=== PATIENT | female | born 1940 | race Caucasian/White ===

== ENCOUNTER 2019-05-15 10:21 | Emergency (ER) | payer MEDICARE, OTHER ==
[2019-05-15] MEDS ORDERED: IBUPROFEN 600 MG TABLET PO STA (11:33)
--- NOTE | 2019-05-15 11:36 | ED Physician Documentation ---
PD HPI Fall - Stated complaint Stated Complaint: GLF/NOSE BLEED - Chief complaint Chief Complaint: Heent - History obtained from History obtained from: Patient - History of Present Illness Mechanism of injury: Tripped Fall distance: Standing position Where injury occurred: Home Timing - onset: How many hours ago (1) Injury(ies) location: Face Associated symptoms: No: LOC, Neck pain Similar symptoms before: Has not had sx before - Additional information Additional information: The patient is an 78-year-old female who tripped over a "pile of rugs" and fell, hitting her nose on hardwood bobbi. Her nose bled initially, but the bleeding has since resolved. She presents with pain and swelling of her nose. She denies headache or neck pain. She denies any other injuries. Review of Systems Constitutional: denies: Fever Eyes: denies: Decreased vision Ears: denies: Tinnitus/ringing Nose: denies: Congestion Cardiac: denies: Chest pain / pressure Respiratory: denies: Dyspnea, Cough GI: denies: Abdominal Pain, Nausea, Vomiting : denies: Dysuria Skin: denies: Abrasion (s), Laceration (s) Musculoskeletal: denies: Neck pain, Extremity pain Neurologic: denies: Focal weakness, Numbness, Headache PD PAST MEDICAL HISTORY - Past Medical History Cardiovascular: Hypertension Respiratory: Pneumonia Musculoskeletal: Rheumatoid arthritis - Past Surgical History Past Surgical History: Yes General: Cholecystectomy Ortho: Hip replacement HEENT: Tonsil/Adenoidectomy - Present Medications Home Medications: Ambulatory Orders Medication Instructions Recorded Confirmed Fluconazole [Diflucan] 150 mg PO ONCE #2 tablet 10/30/13 Losartan [Cozaar] 25 mg PO BID 10/30/13 10/30/13 Nitrofurantoin Monohyd/M-Cryst 100 mg PO BID #10 capsule 10/30/13 [Macrobid 100 mg Capsule] - Allergies Allergies/Adverse Reactions: Allergies Allergy/AdvReac Type Severity Reaction Status Date / Time Sulfa (Sulfonamide Allergy Unknown Verified 05/15/19 10:33 Antibiotics) sulfamethoxazole Allergy Unknown Verified 05/15/19 10:33 [From Bactrim] trimethoprim [From Bactrim] Allergy Unknown Verified 05/15/19 10:33 - Social History Does the pt smoke?: No Smoking Status: Never smoker Does the pt drink ETOH?: Yes Does the pt have substance abuse?: No - POLST Patient has POLST: No PD ED PE NORMAL - Vitals Vital signs reviewed: Yes (Systolic hypertension initially.) - General General: Alert and oriented X 3, Well developed/nourished - HEENT HEENT: PERRL, EOMI, Ears normal, Other (There is swelling and ecchymosis at the base of the nose, with associated tenderness to palpation. There is no septal hematoma. There is no mandibular tenderness to palpation.) - Neck Neck: No bony TTP, Other (Full cervical range of motion without tenderness.) - Cardiac Cardiac: RRR - Respiratory Respiratory: No respiratory distress, Clear bilaterally - Abdomen Abdomen: Soft, Non tender - Back Back: No spinal TTP - Derm Derm: No rash - Extremities Extremities: No edema, No calf tenderness / cord, Other (No tenderness to palpation of the extremities.) - Neuro Neuro: Alert and oriented X 3, No motor deficit, No sensory deficit Results - Vitals Vitals: Vital Signs - 24 hr 05/15/19 05/15/19 10:29 13:01 Temperature 36.0 C L Heart Rate 64 78 Respiratory 19 19 Rate Blood Pressure 151/59 H 137/78 H O2 Saturation 96 99 Oxygen O2 Source Room air - Rads (name of study) Nasal bones Radiology: Prelim report reviewed, EMP read contemporaneously, See rad report (There is cortical irregularity of the mid nasal bone seen on both frontal and lateral views, which may represent a nondisplaced fracture. Overlying soft tissue swelling. Bones otherwise grossly intact. The visualized paranasal sinuses are clear.) PD MEDICAL DECISION MAKING - ED course Complexity details: reviewed results, re-evaluated patient, considered differential, d/w patient, d/w family ED course: The patient's presentation is significant for a nondisplaced nasal fracture caused from a trip and fall. There is no septal hematoma on physical examination, and no nasal bone displacement seen on x-ray examination. Treatment in the emergency department included administration of ibuprofen 600 mg orally. I discussed with the patient and her the expected course of injury, s ymptomatic treatment and outpatient follow-up, as well as potentially worrisome signs or symptoms that should prompt reevaluation in the emergency department. Departure - Departure Disposition: 01 Home, Self Care Clinical Impression: Nasal bones, closed fracture Qualifiers: Encounter type: initial encounter Qualified Code(s): S02.2XXA - Fracture of nasal bones, initial encounter for closed fracture Condition: Stable Instructions: ED Fx Nasal Conf W X Ray Comments: Apply ice pack to the injured area intermittently for the next 2 days. You can use Tylenol or ibuprofen if needed for pain. Follow-up with your primary physician within 1 week, when the swelling has resolved. Call to schedule appointment. Return to the emergency department if you develop markedly increasing swelling, persistent bleeding, or otherwise worsening symptoms. Discharge Date/Time: 05/15/19 13:01
--- NOTE | 2019-05-15 12:50 | XRAY Report ---
Reason: nasal injury Procedure Date: 05/15/2019 Accession Number: [id number] / [id number] Procedure: XR - Nasal Bones CPT Code: FULL RESULT: EXAM: NASAL BONES RADIOGRAPHY EXAM DATE: 05/15/2019 11:49 AM. CLINICAL HISTORY: Nasal injury. COMPARISONS: None. TECHNIQUE: 3 views. FINDINGS IMPRESSION: There is cortical irregularity of the mid nasal bone seen on both frontal and lateral views, which may represent a nondisplaced fracture. Overlying soft tissue swelling. Bones otherwise grossly intact. The visualized paranasal sinuses are clear.
[2019-05-15 13:03] VITALS: BP 137/78
== END 2019-05-15 13:01 | disposition home or self-care (01) ==
LOC: ED 10:21
DX: S02.2XXA Fracture of nasal bones, initial encounter for closed fracture (principal); W01.198A Fall on same level from slipping, tripping and stumbling with subsequent striking against other object, initial encounter; Y93.01 Activity, walking, marching and hiking; Y92.009 Unspecified place in unspecified non-institutional (private) residence as the place of occurrence of the external cause; I10 Essential (primary) hypertension
CPT/HCPCS: 70160; 99283; A9270

== ENCOUNTER 2020-12-12 10:10 | Emergency (ER) | payer MEDICARE, OTHER ==
--- OUTSIDE RECORDS SUMMARY | 2020-12-12 10:42 | EXTERNAL MEDICAL SUMMARY RPT | Continuity of Care Document ---
:1940 Demographics Phone Unavailable Preferred Language Unknown Marital Status Unknown Hoahaoism Affiliation Unknown Race Unknown Ethnic Group Unknown Author Organization [place] Address [address] [id number] Phone Social History date description facility [id number]
[2020-12-12 11:51] VITALS: BP 147/60
[2020-12-12 11:57] LABS: BASOPHILS # (AUTO) 0.1 10^3/uL (0.0-0.1); BASOPHILS % (AUTO) 0.7 %; EOSINOPHILS # (AUTO) 0.2 10^3/uL (0.0-0.7); EOSINOPHILS % (AUTO) 2.2 %; HCT - HEMATOCRIT 37.4 % (37.0-47.0); HGB - HEMOGLOBIN 12.3 g/dL (12.0-16.0); LYMPHOCYTES # (AUTO) 1.2 10^3/uL (1.5-3.5); LYMPHOCYTES % (AUTO) 16.9 %; MEAN CORPUSCULAR HEMOGLOBIN 29.9 pg (27.0-31.0); MEAN CORPUSCULAR HGB CONC 32.9 g/dL (32.0-36.0); MEAN PLATELET VOLUME 8.6 fL (7.9-10.8); MONOCYTES # (AUTO) 0.8 10^3/uL (0.0-1.0); MONOCYTES % (AUTO) 11.2 %; NEUTROPHILS # (AUTO) 4.8 10^3/uL (1.5-6.6); NEUTROPHILS % (AUTO) 68.7 %; PLT - PLATELET COUNT 193 10^3/uL (130-450); RED BLOOD COUNT 4.11 10^6/uL (4.20-5.40); RED CELL DISTRIBUTION WIDTH 11.9 % (12.0-15.0)
--- NOTE | 2020-12-12 12:02 | XRAY Report ---
PROCEDURE: Chest 1 View X-Ray INDICATIONS: Chest pain TECHNIQUE: One view of the chest was acquired. COMPARISON: 02/06/2016 FINDINGS: Surgical changes and devices: None. Lungs and pleura: No pleural effusions or pneumothorax. Lungs are clear. Mediastinum: Mediastinal contours appear normal. Heart size is normal. Bones and chest wall: No suspicious bony lesions. Overlying soft tissues appear unremarkable. IMPRESSION: No acute cardiopulmonary pathology. Reviewed by: Matthew Verde MD on 12/12/2020 11:00 AM [facility] Approved by: Matthew Verde MD on 12/12/2020 11:00 AM [facility] Station ID: [id number]
--- NOTE | 2020-12-12 12:12 | ED Physician Documentation ---
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 Her specialists, infectious disease, pulmonology [facility] are at [facility]. The last 3 to 4 weeks she has had migratory sharp chest pains associated with fatigue. There is no associated cough or fever. She denies pedal edema or calf pain. Last night she had sharp pain that she thought was pleurisy, she did not notice if it was worse with deep breathing or not. She says the symptoms are reminiscent of prior Mycobacterium abscessus flares. Review of Systems Ten Systems: 10 systems reviewed and negative Constitutional: reports: Fatigue. denies: Fever, Chills Respiratory: reports: Dyspnea. denies: Cough PD PAST MEDICAL HISTORY - Past Medical History Cardiovascular: Hypertension Respiratory: Pneumonia Musculoskeletal: Rheumatoid arthritis - Past Surgical History Past Surgical History: Yes General: Cholecystectomy Ortho: Hip replacement HEENT: Tonsil/Adenoidectomy - Present Medications Home Medications: Ambulatory Orders Medication Instructions Recorded Confirmed Fluconazole [Diflucan] 150 mg PO ONCE #2 tablet 10/30/13 Losartan [Cozaar] 25 mg PO BID 10/30/13 10/30/13 Nitrofurantoin Monohyd/M-Cryst 100 mg PO BID #10 capsule 10/30/13 [Macrobid 100 mg Capsule] Doxycycline Hyclate 100 mg PO BID #20 12/12/20 - Allergies Allergies/Adverse Reactions: Allergies Allergy/AdvReac Type Severity Reaction Status Date / Time Sulfa (Sulfonamide Allergy Unknown Verified 12/12/20 10:22 Antibiotics) sulfamethoxazole Allergy Unknown Verified 12/12/20 10:22 [From Bactrim] trimethoprim [From Bactrim] Allergy Unknown Verified 12/12/20 10:22 - Social History Does the pt smoke?: No Smoking Status: Never smoker Does the pt drink ETOH?: Yes Does the pt have substance abuse?: No - POLST Patient has POLST: No PD ED PE NORMAL - Vitals Vital signs reviewed: Yes - General General: Alert and oriented X 3, No acute distress - HEENT HEENT: PERRL, EOMI - Neck Neck: Supple, no meningeal sign, No bony TTP - Cardiac Cardiac: RRR, No murmur - Respiratory Respiratory: No respiratory distress, Other (crackles at both bases, slightly diminished at both bases) - Abdomen Abdomen: Soft, Non tender - Back Back: No CVA TTP, No spinal TTP - Derm Derm: Normal color, Warm and dry - Extremities Extremities: No edema, No calf tenderness / cord - Neuro Neuro: Alert and oriented X 3, Normal speech - Psych Psych: Normal mood, Normal affect Results - Vitals Vitals: Vital Signs - 24 hr 12/12/20 12/12/20 12/12/20 10:19 11:50 12:57 Temperature 36.0 C L Heart Rate 56 L 50 L 56 L Respiratory 16 16 16 Rate Blood Pressure 112/98 H 147/60 H O2 Saturation 99 100 Oxygen O2 Source Room air - EKG (time done) 1138 Rate: Rate (enter#) (48) Rhythm: Sinus bradycardia [place]: Normal Intervals: Normal MD QRS: Normal Ischemia: Normal ST segments Computer interpretation: Agree with computer - Labs Labs: Laboratory Tests 12/12/20 12/12/20 12/12/20 11:50 11:50 11:50 WBC 7.0 RBC 4.11 L Hgb 12.3 Hct 37.4 MCV 91.0 MCH 29.9 MCHC 32.9 RDW 11.9 L Plt Count 193 MPV 8.6 Neut # (Auto) 4.8 Lymph # (Auto) 1.2 L Nicholas # (Auto) 0.8 Eos # (Auto) 0.2 Baso # (Auto) 0.1 Absolute Nucleated RBC 0.00 Nucleated RBC % 0.0 Sodium 135 Potassium 4.1 Chloride 98 L Carbon Dioxide 29 Anion Gap 8.0 BUN 8 Creatinine 0.4 Estimated GFR (MDRD) 153 Glucose 98 Calcium 9.8 Total Bilirubin 0.7 AST 17 ALT 14 Alkaline Phosphatase 44 Troponin I High Sens 4.2 Total Protein 6.7 Albumin 3.9 Globulin 2.8 Albumin/Globulin Ratio 1.4 Lipase 31 PD MEDICAL DECISION MAKING - ED course ED course: Is a ambrose 80-year-old woman with history of atypical mycobacterial infection who presents with migratory chest pains and fatigue similar to prior exacerbations of same. No cough or fever. Lab work and chest x-ray are unremarkable. No evidence of coronary syndrome. I was able to speak with her terrazzo laborer, Dr. Gerber at [facility]. He recommends trying to get an induced sputum out of her, and then treating with 10 days of doxycycline pending follow-up. Despite prolonged attempts by the respiratory therapist, we were unable to get a sputum sample. Departure - Departure Disposition: 01 Home, Self Care Clinical Impression: Chest pain Qualifiers: Chest pain type: chest pain on breathing Qualified Code(s): R07.1 - Chest pain on breathing; R07.81 - Pleurodynia Condition: Good Record reviewed to determine appropriate education?: Yes Instructions: ED Bronchitis Asthmatic Prescriptions: Doxycycline Hyclate 100 mg PO BID #20 Comments: Your terrazzo laborer recommended that we give you the antibiotic. Return for new or worsening symptoms. Follow-up with him next week as scheduled. Do not go out in the sun too much while on the antibiotic.
[2020-12-12 12:15] LABS: ALBUMIN 3.9 g/dL (3.2-5.5); ALBUMIN/GLOBULIN RATIO 1.4 (1.0-2.2); BILIRUBIN,TOTAL 0.7 mg/dL (0.2-1.0); CALCIUM 9.8 mg/dL (8.5-10.3); CREATININE 0.4 mg/dL (0.4-1.0); POTASSIUM 4.1 mmol/L (3.5-5.0); TOTAL PROTEIN 6.7 g/dL (6.7-8.2)
[2020-12-12] MEDS ORDERED: SODIUM CHLORIDE INHALATION 3 ML NEB INH STA (12:38)
== END 2020-12-12 14:05 | disposition home or self-care (01) ==
LOC: ED 10:10
DX: R07.1 Chest pain on breathing (principal); R07.81 Pleurodynia
CPT/HCPCS: 36415; 80053; 83690; 84484; 85025; 93005; 94640; 99284

== ENCOUNTER 2021-03-16 16:17 | Outpatient (CLI) | payer MEDICARE, OTHER | END 2021-03-16 16:18 | disposition home or self-care (01) | LOC: COV 16:17 | PROVIDERS: ATTEND Family Medicine | DX: R06.02 Shortness of breath (principal); R53.83 Other fatigue; Z20.822 Contact with and (suspected) exposure to COVID-19 ==